=== PATIENT | female | born 2000 | race Caucasian/White ===

== ENCOUNTER 2021-02-08 02:32 | Emergency (ER) | payer OTHER ==
[~2021-02-08] VITALS: Ht 162.6 cm; Wt 77.1 kg
[2021-02-08 03:10] LABS: URINE BLOOD NEGATIVE (Negative); URINE CLARITY CLEAR; URINE COLOR DARK YELLOW; URINE GLUCOSE-RANDOM NEGATIVE (Negative); URINE KETONES 2+ (Negative); URINE LEUKOCYTES-REFLEX NEGATIVE (Negative); URINE NITRITE-REFLEX NEGATIVE (Negative); URINE PROTEIN NEGATIVE (Negative); URINE UROBILINOGEN 0.2 E.U./dl (0.2-1.0)
[2021-02-08 03:13] LABS: ICTOTEST (BILI CONFIRMATORY) Negative (Negative); URINE BILIRUBIN 1+ (Negative)
[2021-02-08 03:19] LABS: AMP/METHAMP Negative (Negative); BARBITURATES Negative (Negative); BENZODIAZEPINES Negative (Negative); COCAINE Negative (Negative); METHADONE Negative (Negative); OPIATES Negative (Negative); PCP Negative (Negative); THC POSITIVE (Negative)
[2021-02-08 03:22] LABS: ABSOLUTE BASOPHILS 0.1 thou/uL (0.0-0.2); ABSOLUTE LYMPHOCYTES 1.4 thou/uL (0.8-5.3); ABSOLUTE MONOCYTES 0.7 thou/uL (0.0-1.2); ABSOLUTE NEUTROPHILS 5.4 thou/uL (1.6-8.1); BASOPHILS 0.7 %; EOSINOPHILS 0.2 %; HEMATOCRIT 36.9 % (37.0-47.0); HEMOGLOBIN 12.3 gm/dL (12.0-15.0); LYMPHOCYTES 18.4 %; MCH 27.3 pg (26.0-34.0); MCHC 33.4 g/dL (28.0-37.0); MCV 81.9 fL (80.0-100.0); MONOCYTES 8.9 %; MPV 6.4 fl. (7.2-11.1); NUCLEATED RBCS 0 /100WBC; PLATELET COUNT* 327 thou/uL (150-400); POLYS 71.8 %; RDW-CV 16.7 % (10.5-14.5); WBC 7.5 thou/uL (4.0-11.0)
[2021-02-08 03:35] LABS: CALCIUM 9.2 mg/dL (8.5-10.1); CREATININE 0.7 mg/dL (0.6-1.3); POTASSIUM 3.4 mmol/L (3.5-5.1)
[2021-02-08 03:45] LABS: ALBUMIN 4.4 g/dL (3.4-5.0); TOTAL BILIRUBIN 0.6 mg/dL (<0.1-1.0); TOTAL PROTEIN 8.5 g/dL (6.4-8.2)
[2021-02-08] MEDS ORDERED: COMPAZINE10 M2 PO ×2 (04:28→04:29)
[2021-02-08 06:04] VITALS: BP 129/67
== END 2021-02-08 06:06 | disposition home or self-care (01) ==
LOC: M.ERS 02:32
PROVIDERS: Emergency Medicine
DX: R11.15 Cyclical vomiting syndrome unrelated to migraine (principal); R10.84 Generalized abdominal pain; F17.210 Nicotine dependence, cigarettes, uncomplicated